=== PATIENT | male | born 1965 | race Caucasian/White ===

== ENCOUNTER 2021-07-02 22:32 | Emergency (ER) | payer BC | END 2021-07-02 23:26 | disposition home or self-care (01) | LOC: MADERS 22:32 | DX: G44.009 Cluster headache syndrome, unspecified, not intractable (principal); Z87.891 Personal history of nicotine dependence; I48.91 Unspecified atrial fibrillation; I25.10 Atherosclerotic heart disease of native coronary artery without angina pectoris; Z79.899 Other long term (current) drug therapy; Z79.82 Long term (current) use of aspirin | CPT/HCPCS: 99283 ==